=== PATIENT | male | born 1980 | race Caucasian/White ===

== ENCOUNTER 2019-01-20 14:30 | Emergency (ER) | payer SELFPAY ==
[~2019-01-20] VITALS: Ht 185.4 cm; Wt 83.9 kg
[2019-01-20 14:40] VITALS: BP 120/59
--- NOTE | 2019-01-20 14:49 | NUR ---
Patient ambulated to bed 8. RN evaluating patient at bedside.
--- NOTE | 2019-01-20 15:00 | NUR ---
LACERATION TO TIP OF R THUMB & 3RD FINGER TIP. PT STATES HE WAS USING A POWER SAW TODAY AND IT SLIPPED AND CUT HIS FINGERS. THE TIP OF R THUMB IS CUT OFF, BLEEDING IS CONTROLLED. LACERATION TO R MIDDLE FINGER TIP, BLEEDING IS CONTROLLED. PT DOES NOT RECALL HIS LAST TDAP AND WILL THINK ABOUT IF HE WANTS ONE TODAY. I PROVIDED EDUCATION ON THE VACCINE AND ENCOURAGED PT TO CONSIDER DUE TO THE EXTENT OF HIS INJURY. PT FINGER TIPS ARE COVERED IN MOIST STERILE GAUZE AT THIS TIME.
--- NOTE | 2019-01-20 15:10 | NUR ---
ERMD AT BEDSIDE
[2019-01-20] MEDS ORDERED: KETOROLAC 30 MG/ML VIAL IM ONE (15:20)
[2019-01-20] MEDS ORDERED: cefTRIAXone 1,000 MG in LIDOCAINE MPF 1% - 5 mL VIAL 2.1 ML IM ONE (15:30)
[2019-01-20 15:59] VITALS: BP 120/59
--- NOTE | 2019-01-20 16:00 | NUR ---
Patient discharged with v/s stable. Written and verbal after care instructions given and explained. Patient alert, oriented and verbalized understanding of instructions. Ambulatory with steady gait. All questions addressed prior to discharge. ID band removed. Patient advised to follow up with PMD. Rx of IBUPROFEN, BACTRIM, NORCO given. Patient educated on indication of medication including possible reaction and side effects. Opportunity to ask questions provided and answered.
== END 2019-01-20 16:00 | disposition home or self-care (01) ==
LOC: MED 14:30
DX: S62.524B Nondisplaced fracture of distal phalanx of right thumb, initial encounter for open fracture (principal); S62.660B Nondisplaced fracture of distal phalanx of right index finger, initial encounter for open fracture; W31.2XXA Contact with powered woodworking and forming machines, initial encounter; Y93.89 Activity, other specified; Y92.89 Other specified places as the place of occurrence of the external cause; Y99.8 Other external cause status
CPT/HCPCS: 73130; 90471; 90715; 96372; 99283; J0696; J2001